=== PATIENT | male | born 1940 | race Caucasian/White ===

== ENCOUNTER 2019-09-01 12:51 | Emergency (ER) | payer OTHER ==
[~2019-09-01] VITALS: Ht 177.8 cm; Wt 112.5 kg
[~2019-09-01 12:51] MED LIST: ACET325 PO; AMIO200 PO; ARTIFICIAL TEARS; BENAZEPRIL PO; BISA10S PR; BUDE6HFA INH; CLON.3 PO; CLON.3TP TOP; CODEINE PO; DILT240ER PO; DILT60 PO; DOCU100 PO; FERR325 PO; FOLI1 PO; FURO40 PO; FURO80 PO; GEMF600 PO; GUAIFENESIN PO; Hair, Skin & N1 EACH PO; INS70/30I SC; INSUASPI; INSULANPEN INJ; LAVAP17G; LEVSOD125 PO; LISI20 PO; LORA10 PO; METF500 PO; METO100ER PO; METO25 PO; METO50 PO; MIRT15 PO; NITR.4TPA TOP; Norco 5-325 Ta1 EACH PO; Novolin R100 UNIT/M; OMEP20ER PO; POTA10T PO; POTCHL20ER PO; PROM25 PO; QUET25 PO; ROSU10TA PO; SERT25 PO; TAMS.4ER PO; TERA5 PO; Ventolin Soln3 ML; WARF5 PO
== END 2019-09-01 14:30 | disposition home or self-care (01) ==
LOC: ER 12:51
DX: R00.2 Palpitations (principal); I48.20 Chronic atrial fibrillation, unspecified; E11.9 Type 2 diabetes mellitus without complications; I11.0 Hypertensive heart disease with heart failure; I50.9 Heart failure, unspecified; Z88.8 Allergy status to other drugs, medicaments and biological substances; Z88.7 Allergy status to serum and vaccine; Z79.899 Other long term (current) drug therapy; Z79.01 Long term (current) use of anticoagulants; Z79.4 Long term (current) use of insulin
CPT/HCPCS: 36415; 82947; 93005; 93010; 99284-25

== ENCOUNTER 2022-04-29 12:40 | Emergency (ER) | payer OTHER ==
[~2022-04-29] VITALS: Ht 177.8 cm; Wt 117.0 kg
== END 2022-04-29 15:44 | disposition home or self-care (01) ==
LOC: ER 12:40
DX: S80.11XA Contusion of right lower leg, initial encounter (principal); E11.9 Type 2 diabetes mellitus without complications; I11.0 Hypertensive heart disease with heart failure; I50.9 Heart failure, unspecified; I48.91 Unspecified atrial fibrillation; V03.931A Pedestrian on standing electric scooter injured in collision with car, pick-up or van, unspecified whether traffic or nontraffic accident, initial encounter; Z88.7 Allergy status to serum and vaccine; Z88.8 Allergy status to other drugs, medicaments and biological substances; Z79.899 Other long term (current) drug therapy; Z79.01 Long term (current) use of anticoagulants; Z79.4 Long term (current) use of insulin
CPT/HCPCS: 73562-RT; 73590; 73600

== ENCOUNTER 2023-09-24 11:52 | Inpatient (IN) | payer OTHER ==
[~2023-09-24] VITALS: Ht 177.8 cm; Wt 106.0 kg
[~2023-09-24 11:52] MED LIST changes: +ATOR10 PO; +ELIQUIS5 M2 PO; +ERYT1OIN LEFTEYE; +Flonase 0.05% N16 GM; -INSUASPI; +NOVOLOG100 UNIT/3 SC; +SERT100 PO; +THERA-D2000 UNIT PO
[2023-09-24 12:36] LABS: BASOPHILS ABSOLUTE AUTO 0.05 K/mm3 (0.00-0.23); BASOPHILS PERCENT AUTO 1 % (0-2); EOSINOPHILS ABSOLUTE AUTO 0.16 K/mm3 (0.00-0.68); EOSINOPHILS PERCENT AUTO 2 % (0-6); Hematocrit 46.2 % (37.0-53.0); Hemoglobin 14.2 g/dL (13.5-17.5); IMMATURE GRAN ABSOLUTE AUTO 0.09 K/mm3 (0.00-0.10); IMMATURE GRAN PERCENT AUTO 1 % (0-1); LYMPHOCYTES ABSOLUTE AUTO 0.68 K/mm3 (0.84-5.20); LYMPHOCYTES PERCENT AUTO 7 % (21-46); MONOCYTES ABSOLUTE AUTO 0.97 K/mm3 (0.16-1.47); MONOCYTES PERCENT AUTO 9 % (4-13); Mean Corpuscular HGB 26.9 pg (26.0-34.0); Mean Corpuscular HGB Conc 30.7 g/dL (31.5-36.5); Mean Corpuscular Volume 88 fL (80-100); Mean Platelet Volume 10.4 fL (9.1-12.4); NEUTROPHILS ABSOLUTE AUTO 8.44 K/mm3 (1.96-9.15); NEUTROPHILS PERCENT AUTO 81 % (41-73); Platelet Count 186 K/mm3 (150-400); RDW Coefficient Variation 16.2 % (11.7-14.2); RDW Standard Deviation 51.7 fL (35.1-46.3); Red Blood Cell Count 5.28 M/mm3 (4.30-5.90); White Blood Cell Count 10.39 K/mm3 (4.00-11.30)
[2023-09-24 12:45] LABS: Source, Urine Clean Catch
[2023-09-24 12:54] LABS: Bilirubin, Urine Neg (Neg); Blood, Urine 3+ (Neg); Color, Urine Yellow (P-Yellow); Glucose Qualitative, Urine 4+ (Neg); Ketones, Urine Neg (Neg); Leukocyte Esterase, Urine 2+ (Neg); Nitrite, Urine Neg (Neg); Protein, Urine 2+ (Neg); Urobilinogen, Urine NORM (Normal)
[2023-09-24 13:01] LABS: Appearance, Urine Hazy (Clear)
[2023-09-24 13:02] LABS: Bacteria Few /hpf; Squamous Epithelial Cells Rare /hpf (Few)
[2023-09-24 13:03] LABS: Albumin, Blood 2.5 g/dL (3.4-5.0); Albumin/Globulin Ratio 0.7 (0.8-1.8); Bilirubin, Total 0.7 mg/dL (0.1-1.0); Bun/Creatinine Ratio 19.8 (12.0-20.0); Calcium, Blood 10.7 mg/dL (8.5-10.1); Creatinine, Blood 1.72 mg/dL (0.60-1.20); Globulin, Blood 3.6 g/dL (2.2-4.0); Magnesium, Blood 2.3 mg/dL (1.6-2.4); Potassium, Blood 3.3 mmol/L (3.5-5.5); Total Protein, Blood 6.1 g/dL (6.4-8.2)
[2023-09-24 13:03] LABS: Amorphous Light (0-Heavy)
[2023-09-24 13:34] LABS: Influenza A, PCR NEGATIVE (NEGATIVE); Influenza B, PCR NEGATIVE (NEGATIVE); Resp Syncytial Virus, PCR NEGATIVE (NEGATIVE); SARS-Cov-2 (COVID-19) PCR, MMC NEGATIVE (NEGATIVE)
[2023-09-24 17:36] VITALS: BP 140/83
--- NOTE | 2023-09-24 19:21 | NUR ---
PT ADMIT FROM ED. DR. ROMEO AT BEDSIDE FOR ASSESSMENT. PT IS A POOR HISTORIAN HE DOES NOT KNOW WHAT MEDICAITONS HE TAKES. REPORTS USING CPAP. UPDATED.
[2023-09-24 20:05] VITALS: BP 189/88
[2023-09-24 21:01] VITALS: BP 156/62
[2023-09-25] VITALS (7 sets, daily range): BP systolic 151–188; BP diastolic 68–106
[2023-09-25 04:57] LABS: BASOPHILS ABSOLUTE AUTO 0.04 K/mm3 (0.00-0.23); BASOPHILS PERCENT AUTO 1 % (0-2); EOSINOPHILS ABSOLUTE AUTO 0.22 K/mm3 (0.00-0.68); EOSINOPHILS PERCENT AUTO 3 % (0-6); Hematocrit 44.7 % (37.0-53.0); Hemoglobin 13.5 g/dL (13.5-17.5); IMMATURE GRAN ABSOLUTE AUTO 0.05 K/mm3 (0.00-0.10); IMMATURE GRAN PERCENT AUTO 1 % (0-1); LYMPHOCYTES ABSOLUTE AUTO 0.84 K/mm3 (0.84-5.20); LYMPHOCYTES PERCENT AUTO 10 % (21-46); MONOCYTES ABSOLUTE AUTO 0.96 K/mm3 (0.16-1.47); MONOCYTES PERCENT AUTO 11 % (4-13); Mean Corpuscular HGB 26.6 pg (26.0-34.0); Mean Corpuscular HGB Conc 30.2 g/dL (31.5-36.5); Mean Corpuscular Volume 88 fL (80-100); Mean Platelet Volume 9.9 fL (9.1-12.4); NEUTROPHILS ABSOLUTE AUTO 6.67 K/mm3 (1.96-9.15); NEUTROPHILS PERCENT AUTO 76 % (41-73); Platelet Count 153 K/mm3 (150-400); RDW Coefficient Variation 16.3 % (11.7-14.2); RDW Standard Deviation 52.1 fL (35.1-46.3); Red Blood Cell Count 5.08 M/mm3 (4.30-5.90); White Blood Cell Count 8.78 K/mm3 (4.00-11.30)
[2023-09-25 05:21] LABS: Albumin, Blood 2.4 g/dL (3.4-5.0); Albumin/Globulin Ratio 0.7 (0.8-1.8); Bilirubin, Total 0.5 mg/dL (0.1-1.0); Bun/Creatinine Ratio 18.9 (12.0-20.0); Calcium, Blood 10.8 mg/dL (8.5-10.1); Creatinine, Blood 1.8 mg/dL (0.60-1.20); Globulin, Blood 3.3 g/dL (2.2-4.0); Phosphorus, Blood 3.7 mg/dL (2.5-4.9); Potassium, Blood 3.9 mmol/L (3.5-5.5); Total Protein, Blood 5.7 g/dL (6.4-8.2)
--- NOTE | 2023-09-25 06:05 | NUR ---
SHIFT SUMMARY MR GONSALVES HAS SEVERE WEAKNESS. DIFFICULTY LIFTING A CUP TO HIS MOUTH. 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 ABLE TO ASSIST IN ROLLING IN BED A LITTLE. ORIENTATED TO NAME, PLACE, DATE, SITUATION, BUT FORGETFUL AND A POOR HISTORIAN. HE C/O PAIN GENERALISED, TO LEGS, BETWEEN HIS SHOULDER BLADES. HE SAID HE DOESN'T REMEMBER WHAT HE TAKES FOR PAIN AT HOME. UNABLE TO DO MED RECONCILIATION. HE SAID HE WILL ASK HIS FRIEND MAXINE TO BRING HIS MEDICATIONS IN TODAY. ON FURTHER QUESTIONING HE THINKS HE TAKES O.T.C. PAIN MEDS, PERHAPS TYLENOL. DR MCDONOUGH NOTIFIED OF PAIN AND TELEPHONE ORDER FOR FENTANYL 25-50MCG Q4HRS PRN READ BACK AND ENTERED INTO [place]. HEAT PAD APPLIED TO THE UPPER BACK FOR PAIN AND MR GONSALVES SAID HE WILL LET ME KNOW IF HE WANTS TO TAKE THE FENTANYL. BP ELEVATED, RECHECK BETTER. HE WORE CPAP WHEN SLEEPING. CONTINENT AND INCONTINENT OF URINE. RENAL US DONE AT BEDSIDE EARLIER THIS SHIFT. MR GONSALVES LIVES ALONE AND HAS BEEN HAVING DIFFICULTY CARING FOR HIMSELF RECENTLY. BED LOW, CALL LIGHT IN REACH AND BEING USED APPROPRIATELY.
[2023-09-25] MEDS ORDERED: ALLO100 PO (12:01)
--- NOTE | 2023-09-25 16:17 | NUR ---
SHIFT SUMMARY PT SLEEPING DURING SHIFT REPORT. DROWSY THIS AM. PT LATER WOKE UP DAY WENT ON. PT ABLE TO WORK WITH THERAPY AND GET OOB TO CHAIR. PT UP TO CHAIR FOR LUNCH AND A COUPLE OF HOURS AFTER. PT THEN REQUESTING TO GO BACK TO BED FOR A BIT. PT AWAKE AND USING PHONE, ABLE TO USE CALL LT APPROPRIATELY. PT C/O PAIN THIS AM. DR ARRIETA NOTIFIED. NEW ORDERS PLACED. PT REPORTING PAIN MEDICATION EFFECTIVE AND REPORTED FEELING MUCH BETTER. PT TAKES MEDS WHOLE IN GLEN PUDDING, REPORTING THEM MUCH EASIER TO TAKE THAT WAY. DR ARRIETA HOPING TO ARRANGE FOR BIOPSY ON NECK MASS ON WEDNESDAY IF POSSIBLE. VISITOR TO TODAY BRINGING IN HOME MEDICATIONS; VERIFIED AND UPDATED ON CHART. DENIES FURTHER NEEDS AT THIS TIME. CALL LT IN REACH.
--- NOTE | 2023-09-25 21:38 | NUR ---
HYPERTENSIVE PT HYPERTENSIVE WITH PM VITALS CHECK. JENN SIFUENTES NP CALLED AND NOTIFIED. RECEIVED ORDER FOR PRN HYDRALYZINE FOR SBP GREATER THAN 175.
[2023-09-26] VITALS (7 sets, daily range): BP systolic 146–187; BP diastolic 73–119
--- NOTE | 2023-09-26 04:06 | NUR ---
SHIFT SUMMARY PT HAS RESTED T/O THE NIGHT. PT REPORTS PAIN IN NECK AND SHOULDERS, MEDICATED PER EMAR WITH EFFECT. PT HAS BEEN HYPERTENSIVE, ASYMPTOMATIC. PROVIDER NOTIFIED AND HYDRALYZINE PRN FOR SBP GREATER THAN 175 ORDERED. SBP BELOW 175 WITH LAST CHECK. PT ABLE TO MAKE NEEDS KNOWN. BED IN LOWEST POSITION, CALL LIGHT WITHIN REACH.
[2023-09-26 05:51] LABS: BASOPHILS ABSOLUTE AUTO 0.04 K/mm3 (0.00-0.23); BASOPHILS PERCENT AUTO 0 % (0-2); EOSINOPHILS ABSOLUTE AUTO 0.26 K/mm3 (0.00-0.68); EOSINOPHILS PERCENT AUTO 3 % (0-6); Hematocrit 44.9 % (37.0-53.0); Hemoglobin 13.6 g/dL (13.5-17.5); IMMATURE GRAN PERCENT AUTO 1 % (0-1); LYMPHOCYTES ABSOLUTE AUTO 0.63 K/mm3 (0.84-5.20); LYMPHOCYTES PERCENT AUTO 7 % (21-46); MONOCYTES ABSOLUTE AUTO 0.84 K/mm3 (0.16-1.47); MONOCYTES PERCENT AUTO 9 % (4-13); Mean Corpuscular HGB 26.8 pg (26.0-34.0); Mean Corpuscular HGB Conc 30.3 g/dL (31.5-36.5); Mean Corpuscular Volume 88 fL (80-100); Mean Platelet Volume 11.4 fL (9.1-12.4); NEUTROPHILS ABSOLUTE AUTO 7.05 K/mm3 (1.96-9.15); NEUTROPHILS PERCENT AUTO 79 % (41-73); Platelet Count 164 K/mm3 (150-400); RDW Coefficient Variation 16.1 % (11.7-14.2); RDW Standard Deviation 52.2 fL (35.1-46.3); Red Blood Cell Count 5.08 M/mm3 (4.30-5.90); White Blood Cell Count 8.92 K/mm3 (4.00-11.30)
--- NOTE | 2023-09-26 06:04 | NUR ---
HYPERTENSION DR. MCDONOUGH NOTIFIED THAT PT CONTINUES TO BE HYPERTENSIVE SBP IN THE 170'S. NOTIFIED HIM THAT I SPOKE WITH JENN ROSS NP EARLIER IN SHIFT AND NOTIFIED HIM AND THAT HYDRALYZINE WAS ORDERED FOR SBP GREATER THAN 175. HOWEVER, BECAUSE SBP HAS SLIGHTLY BEEN UNDER PARAMETERS IN THE LOW 170'S I DID NOT GIVE. PARAMETERS CHANGED TO SBP GREATER THAN [address] LAWSON ORDERS.
[2023-09-26 06:53] LABS: Bun/Creatinine Ratio 19.3 (12.0-20.0); Calcium, Blood 11.2 mg/dL (8.5-10.1); Creatinine, Blood 1.76 mg/dL (0.60-1.20); Potassium, Blood 3.8 mmol/L (3.5-5.5)
--- NOTE | 2023-09-26 15:31 | NUR ---
SHIFT SUMMARY PT AWAKE THIS AM, BUT LETHARGIC AND WHINY; UNWILLING TO ANSWER QUESTIONS ACCURATELY OR PARTICIPATE IN CARE. PT UNWILLING TO FEED HIMSELF TODAY, WANTING STAFF TO DO IT. MEAL TRAYS SET UP AND PT ENCOURAGED TO FEED HIMSELF. PT DID THE SAME THING YESTERDAY AM, WANTING STAFF TO FEED HIM, THEN YVAN FROM THERAPY IN TO SEE PT AND GOT HIM OOB TO CHAIR MOTIVATING PT TO HELP HIMSELF ON WEDNESDAY. PT HAS BEEN LETHARGIC AND C/O PAIN OFF AND ON; PT MEDICATED MORE TODAY, BUT DID NOT SEEM TO BE EFFECTIVE FOR SOME REASON; PT MORE RESTLESS AND WHINY. DR ARRIETA IN TO SEE PT THIS MORNING. BP MEDICATIONS ADJUSTED AND GIVEN. PT INCONTINENT OF URINE; PT CLEANED AND LINEN CHANGED. BED BATH GIVEN AGAIN TODAY. PT QUIET FOR A FEW MINUTES AND THEN BECOMING RESTLESS, TRYING TO USE HIS PHONE. PT ROLLING HIMSELF OUT OF BED WHILE TRYING TO USE HIS PHONE, NOT PAYING ATTENTION. PT ASSISTED BACK INTO BED, VS TAKEN; SEE CHART. PT HAS CONTINUED TO USE AND LOOK ON HIS PHONE TO PRESENT. DR ARRIETA TO CONTACT IR FOR POSSIBLE BIOPSY OF NECK MASS TOMORROW. CALL LT IN REACH. BED ALARM ON FOR SAFETY.
[2023-09-27] VITALS (7 sets, daily range): BP systolic 137–188; BP diastolic 73–117
--- NOTE | 2023-09-27 03:56 | NUR ---
1900: ASSUMED CARE OF PT, REPORT RECEIVED FROM DAY SHIFT RN. PT IS LAYING IN BED WITH HOB ELEVATED. A/O X2-3 DURING THE NIGHT. PAINFUL WITH MOVEMENT, REPORTS PAIN "MY WHOLE BODY". ASSISTED IN BED FOR ELIMINATION AND TURNING THROUGHOUT THE NIGHT. MAINTAINED OXYGEN SATURATION ON ROOM AIR >90%. NEW PIV PLACED BY SECOND RN TO RIGHT FOREARM. NEEDS ADDRESSED AND SAFETY MEASURES TAKEN THROUGH THE NIGHT. CALL LIGHT WITHIN REACH, BED IN THE LOWEST POSITION, BED ALARM ON. NEEDS ADDRESSED.
[2023-09-27 06:01] LABS: Albumin, Blood 2.4 g/dL (3.4-5.0); Albumin/Globulin Ratio 0.6 (0.8-1.8); Bilirubin, Total 0.3 mg/dL (0.1-1.0); Calcium, Blood 10.6 mg/dL (8.5-10.1); Creatinine, Blood 1.5 mg/dL (0.60-1.20); Globulin, Blood 3.7 g/dL (2.2-4.0); Potassium, Blood 3.8 mmol/L (3.5-5.5); Total Protein, Blood 6.1 g/dL (6.4-8.2)
[2023-09-27 06:03] LABS: BASOPHILS ABSOLUTE AUTO 0.05 K/mm3 (0.00-0.23); BASOPHILS PERCENT AUTO 1 % (0-2); EOSINOPHILS ABSOLUTE AUTO 0.21 K/mm3 (0.00-0.68); EOSINOPHILS PERCENT AUTO 2 % (0-6); Hematocrit 48.2 % (37.0-53.0); Hemoglobin 14.6 g/dL (13.5-17.5); IMMATURE GRAN ABSOLUTE AUTO 0.13 K/mm3 (0.00-0.10); IMMATURE GRAN PERCENT AUTO 1 % (0-1); LYMPHOCYTES ABSOLUTE AUTO 0.74 K/mm3 (0.84-5.20); LYMPHOCYTES PERCENT AUTO 7 % (21-46); MONOCYTES ABSOLUTE AUTO 1.05 K/mm3 (0.16-1.47); MONOCYTES PERCENT AUTO 10 % (4-13); Mean Corpuscular HGB 26.6 pg (26.0-34.0); Mean Corpuscular HGB Conc 30.3 g/dL (31.5-36.5); Mean Corpuscular Volume 88 fL (80-100); Mean Platelet Volume 11.3 fL (9.1-12.4); NEUTROPHILS ABSOLUTE AUTO 8.07 K/mm3 (1.96-9.15); NEUTROPHILS PERCENT AUTO 79 % (41-73); Platelet Count 191 K/mm3 (150-400); RDW Coefficient Variation 16.2 % (11.7-14.2); Red Blood Cell Count 5.49 M/mm3 (4.30-5.90); White Blood Cell Count 10.25 K/mm3 (4.00-11.30)
--- NOTE | 2023-09-27 10:00 | NUR ---
KIERAN LEIJA VERBALIZED CONCERN ABOUT PATIENT AND HIS LOC. VITALS NOTED TO BE STABLE. O2 DECREASES TO LOW 80'S WHEN LAYING FLAT. 4+ PITTING EDEMA TO LEFT HAND IS WARM. PATIENT CRIES OUT IN PAIN AND REPORTS THE LEFT SIDE OF HIS NECK HURTS. HE ALSO APPEARS RESTLESS AND UNCOMFORTABLE. NOTIFIED AND VERBALLY ORDERED HEAD CT, US OF LEFT EXTREMITIY AND 0.5MG OF IV ATIVAN ONE TIME NOW.
--- NOTE | 2023-09-27 12:51 | NUR ---
[facility]ocker REPORTED TO THIS NURSE THAT PT IS POSITIVE FOR A THROMBUS. NOTIFIED PROVIDED WHO CONFIRMED PATIENT IS RECEIVING ELIQUIS. PLAN TO MONITOR AT THIS POINT.
--- NOTE | 2023-09-27 15:53 | NUR ---
PATIENT NOTED TO BE HALF WAY OUT OF RECLINER, CRYING OUT. 3 PHYSICAL THERAPISTS AND 2 NURSING STAFF TRANSFERRED PATIENT BACK TO BED USING A SLING LIFT SHEET. PATIENT IS TEARFUL DUE TO PAIN TO LUE. VERBAL ORDER RECEIVED TO PUT A WEIGHT RESTRICTION ON PT'S LEFT ARM. NOTIFIED THERAPIES.
--- NOTE | 2023-09-27 16:13 | NUR ---
RECEIVED A CALL FROM OUTPATIENT IMAGING AND WAS NOTIFIED THAT THE HOSPITAL MRI MACHINE IS DOWN AND PATIENT WOULD HAVE TO BE TRANSPORTED TO OUTPATIENT FACILITY TO BE SCANNED. THE EARLIEST TIME WOULD BE ON 09/28/[address] ARRIETA.
--- NOTE | 2023-09-27 17:04 | NUR ---
REPORT GIVEN TO TABITHA LAM IN PCU. TRANSFERRED PATIENT AT 1650.
[2023-09-27 17:06] LABS: Lactate Dehydrogenase (Ld),Bld 495 U/L (100-240); Prostate Specific Antigen 0.447 ng/mL (0.000-4.000); Uric Acid, Blood 6.7 mg/dL (3.5-7.2)
--- NOTE | 2023-09-27 23:29 | NUR ---
ASSUMED CARE OF PT AT 1900. PT AOX~2 ALTHOUGH MENTATION APPEARS TO FLUCTUATE SOMEWHAT. NOT ENTIRELY COOPERATIVE WITH CARE BUT IS MOSTLY REDIRECTABLE. HEAVY 2 PERSON TRANSFER FROM CHAIR TO BED. CONTINENT THUS FAR. BED ALARM REMAINS ACTIVE FOR SAFETY. HAS BEEN MAINTAINING SATURATIONS >92% ON ROOM AIR WITH OCCASIONAL DIPS INTO HIGH 80s WHILE SLEEPING. ADMINISTERED PRN NORCO FOR PAIN MANAGEMENT WITH 2100 MEDICATIONS AND PT HAS MOSTLY BEEN ABLE TO SLEEP COMFORTABLY SINCE. TELE ON, RUNNING AFIB W/ BBB NO EVENTS THUS FAR. BP HAS BEEN ELEVATED THROUGHOUT SHIFT BUT HAS MAINTAINED <190 SBP. PER SHIFT REPORT, PHYSICIAN AWARE AND ALLOWING PERMISSIVE HTN WITH PRN IV HYDRALAZINE TO BE ADMINISTERED IF SBP >=200. BED LOCKED IN LOWEST POSITION. CALL LIGHT LEFT WITHIN REACH. BED ALARM REMAINS ACTIVE. CONTINUING TO MONITOR. WILL HAND OFF TO IRA LU @ 0100.
[2023-09-28 02:57] VITALS: BP 162/87
[2023-09-28 05:33] LABS: BASOPHILS ABSOLUTE AUTO 0.05 K/mm3 (0.00-0.23); BASOPHILS PERCENT AUTO 1 % (0-2); EOSINOPHILS ABSOLUTE AUTO 0.24 K/mm3 (0.00-0.68); EOSINOPHILS PERCENT AUTO 2 % (0-6); Hematocrit 46.1 % (37.0-53.0); Hemoglobin 14.2 g/dL (13.5-17.5); IMMATURE GRAN ABSOLUTE AUTO 0.13 K/mm3 (0.00-0.10); IMMATURE GRAN PERCENT AUTO 1 % (0-1); LYMPHOCYTES ABSOLUTE AUTO 0.62 K/mm3 (0.84-5.20); LYMPHOCYTES PERCENT AUTO 6 % (21-46); MONOCYTES ABSOLUTE AUTO 0.96 K/mm3 (0.16-1.47); MONOCYTES PERCENT AUTO 9 % (4-13); Mean Corpuscular HGB 26.9 pg (26.0-34.0); Mean Corpuscular HGB Conc 30.8 g/dL (31.5-36.5); Mean Corpuscular Volume 88 fL (80-100); Mean Platelet Volume 11.3 fL (9.1-12.4); NEUTROPHILS ABSOLUTE AUTO 8.53 K/mm3 (1.96-9.15); NEUTROPHILS PERCENT AUTO 81 % (41-73); Platelet Count 207 K/mm3 (150-400); RDW Coefficient Variation 16.2 % (11.7-14.2); RDW Standard Deviation 51.9 fL (35.1-46.3); Red Blood Cell Count 5.27 M/mm3 (4.30-5.90); White Blood Cell Count 10.53 K/mm3 (4.00-11.30)
[2023-09-28 05:55] LABS: Albumin, Blood 2.4 g/dL (3.4-5.0); Albumin/Globulin Ratio 0.7 (0.8-1.8); Bilirubin, Total 0.4 mg/dL (0.1-1.0); Bun/Creatinine Ratio 18.5 (12.0-20.0); Calcium, Blood 10.4 mg/dL (8.5-10.1); Creatinine, Blood 1.62 mg/dL (0.60-1.20); Globulin, Blood 3.6 g/dL (2.2-4.0); Potassium, Blood 3.5 mmol/L (3.5-5.5)
--- NOTE | 2023-09-28 06:16 | NUR ---
NOC SHIFT SUMMARY ASSUMED CARE OF PT FROM ENIO RAO RN @ 0100 PT ORIENTED X2-3, CONFUSION NOTED. AFIB ON TELEMETRY, RATE CONTROLLED. PAIN CONTROLLED BY AVAILABLE PRNS. VSS PER PT TREND. NPO SINCE 0000 FOR NECK BIOPSY WITH IR TODAY. WILL PASS ON TO DAY RN
--- NOTE | 2023-09-28 06:52 | NUR ---
PT HAD A 15 BEAT RUN OF VTACH THIS AM. ASYMPTOMATIC, VSS. NOTIFIED DR. BAEZ AND ORDER FOR MAG TO BE CHECKED AND 40 MEQ POTASSIUM
[2023-09-28 07:34] VITALS: BP 186/104
[2023-09-28 11:02] VITALS: BP 154/105
[2023-09-28 14:28] VITALS: BP 156/106
[2023-09-28 15:27] VITALS: BP 168/92
--- NOTE | 2023-09-28 17:26 | NUR ---
Shift Summary Pt alert, oriented x2, neuro continues to be labile and at times patient declineing assessments intermittently. Pt up with 1 person assist this am, attempted to educated pt on limited activity due to blood clot. Attempted to give patient medication this am with water and pt states it got stuck in his throat, then attempted to give liquid potassium and pt coughed and appeared to aspirated, pt placed on 2l o2 via nc this am for short while. Notified MD, new orders for ST evaluation, Renee at bedside this afternoon. Pt denies pain, chest pain/pressure, nausea, dizziness and numb/tingling. Tele afib with bbb, 90-110's occasionally 120-150's at times. Bp elevated. Other vss. No other acute changes noted. Unable to compelted MRI due to patient pacemaker. Plans for NPO at midnight for biopsy in am. Pt denies pain, chest pain/pressure
[2023-09-28 20:02] VITALS: BP 154/104
--- NOTE | 2023-09-28 22:54 | NUR ---
ASSUMPTION OF CARE: THIS RN ASSUMED CARE OF PT AT APPROX 1915. PT IS ALERT, ORIENTED X3 AT START OF SHIFT. PLEASANT, CONVERSANT W/ STAFF. VSS W/ BP ELEVATED; PERMISSIVE HTN AT THIS TIME. PILLS W/ PUDDING, TOLERATED WELL W/O ANY VISIBLE SIGNS OF ASPIRATION. PT CONTINUES TO BE FORGETFUL, PROFOUNDLY WEAK. COOPERATIVE W/ ASSESSMENTS AT THIS TIME. PLANS FOR NPO AT 0000 FOR BIOPSY IN AM. CALL LIGHT WITHIN REACH, BED IN LOWEST POSITION.
[2023-09-29] VITALS (15 sets, daily range): BP systolic 147–180; BP diastolic 80–115
--- NOTE | 2023-09-29 03:43 | NUR ---
LATE ENTRY DATE INPUT ERROR WHEN CHARTING SHIFT ASSESSMENT. SHIFT ASSESSMENT WAS PERFORMED BY THIS RN ON 09/25/22 AT 1952 NOT 09/24/22 AT 1952.
[2023-09-29 04:25] LABS: BETA-2-MICROGLOBULIN,SER/PLAS 6.3 mg/L (<=3.0)
--- NOTE | 2023-09-29 04:44 | NUR ---
END OF SHIFT NOTE: PT REMAINS ALERT, ORIENTED X2-3. NEURO HAS REMAINED CONSISTENT OVERNIGHT, Q2HR NEURO CHECKS UNCHANGED. NO UNILATERAL DEFICITS OBSERVED. PERRLA. 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 RADIAL & PEDAL PULSES PALPABLE. PT ABLE TO COMMUNICATE NEEDS W/ STAFF. HR 90'S, AFIB ON TELE; 5 BEAT RUN OF VTACH WHILE SLEEPING AT APPROX 0355. SBP 150-160'S. DENIES CHEST PAIN/PRESSURE. SPO2 >93% ON RA-2L VIA NC. AFEBRILE. NO C/O PAIN, ABLE TO SLEEP FOR MAJORITY OF NOC. PT ABLE TO SIT UP & REPOSITION SELF W/ MINIMAL ASSISTANCE. NPO SINCE 0000 FOR ANTICIPATED BIOPSY THIS MORNING. INCONTINENT VOIDS W/ SOME USE OF URINAL, STAFF ASSISTANCE REQUIRED DUE TO PT'S GENERALIZED WEAKNESS. NO OTHER NEEDS AT THIS TIME. PT IS RESTING IN BED W/ CALL LIGHT IN REACH. BED ALARM ON FOR PT SAFETY. WILL REPORT TO ONCOMING RN.
--- NOTE | 2023-09-29 05:16 | NUR ---
LATE ENTRY DATE INPUT ERROR WHEN CHARTING SHIFT ASSESSMENT. SHIFT ASSESSMENT WAS PERFORMED BY THIS RN ON 09/25/23 AT 1952 NOT 09/24/23 AT 1952.
--- NOTE | 2023-09-29 07:40 | NUR ---
care assumption pt lethargic upon care assumption. able to answer some questions. moans and asks for water. pt educated on why he is npo for possible biopsy this am. sp02>90% on 2l nc. telemetry shows afib, hr 90;s, htn noted see vitals. after assessment, telemetry notified pt's desatting. Charge in room as well as RT, pt sats in 60's. elevated hob, woke pt up. Pt sat eddie to 90's once again. RT to get cpap for when pt sleepnig.
[2023-09-29 08:29] LABS: Base Excess Venous 3.6 mmol/L; Bicarbonate Venous 25.5 mmol/L (24.0-30.0); PCO2 Venous 56.7 mmHg (38-42); pH Blood Venous 7.33 (7.34-7.37)
[2023-09-29 08:42] LABS: BASOPHILS ABSOLUTE AUTO 0.05 K/mm3 (0.00-0.23); BASOPHILS PERCENT AUTO 1 % (0-2); EOSINOPHILS ABSOLUTE AUTO 0.25 K/mm3 (0.00-0.68); EOSINOPHILS PERCENT AUTO 3 % (0-6); Hematocrit 48.3 % (37.0-53.0); Hemoglobin 14.2 g/dL (13.5-17.5); IMMATURE GRAN ABSOLUTE AUTO 0.13 K/mm3 (0.00-0.10); IMMATURE GRAN PERCENT AUTO 1 % (0-1); LYMPHOCYTES ABSOLUTE AUTO 0.47 K/mm3 (0.84-5.20); LYMPHOCYTES PERCENT AUTO 5 % (21-46); MONOCYTES ABSOLUTE AUTO 0.88 K/mm3 (0.16-1.47); MONOCYTES PERCENT AUTO 9 % (4-13); Mean Corpuscular HGB 26.5 pg (26.0-34.0); Mean Corpuscular HGB Conc 29.4 g/dL (31.5-36.5); Mean Corpuscular Volume 90 fL (80-100); Mean Platelet Volume 10.5 fL (9.1-12.4); NEUTROPHILS ABSOLUTE AUTO 7.57 K/mm3 (1.96-9.15); NEUTROPHILS PERCENT AUTO 81 % (41-73); Platelet Count 199 K/mm3 (150-400); RDW Coefficient Variation 16.6 % (11.7-14.2); RDW Standard Deviation 54.5 fL (35.1-46.3); Red Blood Cell Count 5.36 M/mm3 (4.30-5.90); White Blood Cell Count 9.35 K/mm3 (4.00-11.30)
[2023-09-29 09:00] LABS: Albumin, Blood 2.5 g/dL (3.4-5.0); Albumin/Globulin Ratio 0.7 (0.8-1.8); Bilirubin, Total 0.4 mg/dL (0.1-1.0); Bun/Creatinine Ratio 19.6 (12.0-20.0); Calcium, Blood 10.5 mg/dL (8.5-10.1); Creatinine, Blood 1.79 mg/dL (0.60-1.20); Globulin, Blood 3.7 g/dL (2.2-4.0); Total Protein, Blood 6.2 g/dL (6.4-8.2)
--- NOTE | 2023-09-29 12:46 | NUR ---
UPDATE PT BEGAN WAKING UP MORE DURING LUNCH TIME. PT ABLE TO MAKE NEEDS KNOWN, "I HURT ALL OVER" "I WANT WATER". PT ABLE TO TOLERATE SMALL SIPS OF WATER. PT GIVEN TYLENOL W/ PUDDING PER SPEECH RECOMMENDATIONS WITH NO APPARENT ISSUE. BIPAP REMOVED AND PT PLACED ON 3L NC W/ SATS >90%. PT ABLE TO CALL AND TALK TO FRIEND, MAXINE, ON SPEAKER PHONE. PT RESTING IN ROOM, CALL LIGHT IN R HAND.
--- NOTE | 2023-09-29 18:26 | NUR ---
shift summary Pt became more alert around noon. Able to make needs known. used call light appropriately. Sp02>90% able to titrate to ra. telemetry shows afib, hr 90's, HTN noted. permissive per emar. Used urinal to void as well as some incontinent voids. full linen change. bed bath given. C/o of l arm pain, medicated w/ tylenol per emar. no bm this shift. MD Mcrae in room for neck biopsy this am, dressing c/d/i. Chest xray in room this evening, see results. medication given w/ pudding per speech therapy with no apparent issues. Pt talked on phone to friend, elaine, with assistance. Pt talked on phone this afternoon with [facility]. Pt laying in bed watching tv. call light in reach.
--- NOTE | 2023-09-29 20:07 | NUR ---
ASSUMPTION OF CARE: THIS RN ASSUMED CARE OF PT AT APPROX 1915. PT ALERT, SITTING UP IN BED. ABLE TO TALK TO FRIEND ON PHONE AT START OF SHIFT. ORIENTED TO SELF AND DATE, UNSURE ABOUT PLACE OR DETAILS OF CURRENT SITUATION. ON RA-1L NC AT THIS TIME, DENIES SOB. BP ELEVATED, PERMISSIVE PER ORDERS. ON BEDPAN AT THIS TIME TO ATTEMPT BM, ATTENDS C/D/I AT THIS TIME. CALL LIGHT IN REACH, BED IN LOWEST POSITION.
[2023-09-30 03:00] VITALS: BP 165/100
[2023-09-30 03:58] LABS: BASOPHILS ABSOLUTE AUTO 0.04 K/mm3 (0.00-0.23); BASOPHILS PERCENT AUTO 0 % (0-2); EOSINOPHILS ABSOLUTE AUTO 0.31 K/mm3 (0.00-0.68); EOSINOPHILS PERCENT AUTO 3 % (0-6); Hematocrit 44.2 % (37.0-53.0); Hemoglobin 13.6 g/dL (13.5-17.5); IMMATURE GRAN ABSOLUTE AUTO 0.08 K/mm3 (0.00-0.10); IMMATURE GRAN PERCENT AUTO 1 % (0-1); LYMPHOCYTES ABSOLUTE AUTO 0.66 K/mm3 (0.84-5.20); LYMPHOCYTES PERCENT AUTO 7 % (21-46); MONOCYTES ABSOLUTE AUTO 0.81 K/mm3 (0.16-1.47); MONOCYTES PERCENT AUTO 9 % (4-13); Mean Corpuscular HGB 26.9 pg (26.0-34.0); Mean Corpuscular HGB Conc 30.8 g/dL (31.5-36.5); Mean Corpuscular Volume 88 fL (80-100); NEUTROPHILS ABSOLUTE AUTO 7.29 K/mm3 (1.96-9.15); NEUTROPHILS PERCENT AUTO 79 % (41-73); Platelet Count 198 K/mm3 (150-400); RDW Coefficient Variation 16.1 % (11.7-14.2); RDW Standard Deviation 51.5 fL (35.1-46.3); Red Blood Cell Count 5.05 M/mm3 (4.30-5.90); White Blood Cell Count 9.19 K/mm3 (4.00-11.30)
[2023-09-30 04:30] LABS: Albumin, Blood 2.2 g/dL (3.4-5.0); Albumin/Globulin Ratio 0.6 (0.8-1.8); Bilirubin, Total 0.3 mg/dL (0.1-1.0); Bun/Creatinine Ratio 22.2 (12.0-20.0); Calcium, Blood 9.9 mg/dL (8.5-10.1); Creatinine, Blood 1.62 mg/dL (0.60-1.20); Globulin, Blood 3.5 g/dL (2.2-4.0); Potassium, Blood 3.6 mmol/L (3.5-5.5); Total Protein, Blood 5.7 g/dL (6.4-8.2)
--- NOTE | 2023-09-30 05:18 | NUR ---
END OF SHIFT NOTE: PT REMAINS ALERT, ORIENTED X2-3. NEURO HAS REMAINED CONSISTENT OVERNIGHT, Q2HR NEURO CHECKS UNCHANGED. NO UNILATERAL DEFICITS OBSERVED. PERRLA. 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 RADIAL & PEDAL PULSES PALPABLE. PT ABLE TO COMMUNICATE NEEDS W/ STAFF, USES CALL LIGHT APPROPRIATELY. HR 80-90'S. SBP 140-170'S, DENIES CHEST PAIN/PRESSURE. SPO2 >90% ON 2L VIA NC, BIPAP WHILE SLEEPING 12/7, 25% FIO2. AFEBRILE. C/O PAIN CAIT, MEDICATED W/ TYLENOL PER EMAR. PT ABLE TO SIT UP & REPOSITION SELF W/ ASSISTANCE. LEFT NECK BIOPSY SITE REMAINS INTACT, DRESSING IN PLACE; NO BLEEDING OR HEMATOMA FORMATION OBSERVED. INCONTINENT VOIDS W/ SOME USE OF URINAL, ATTENDS CHANGED TO KEEP C/D/I. NO OTHER NEEDS AT THIS TIME. PT IS RESTING IN BED W/ CALL LIGHT IN REACH. BED ALARM ON FOR PT SAFETY. WILL REPORT TO ONCOMING RN.
[2023-09-30 07:46] VITALS: BP 185/100
[2023-09-30 11:31] VITALS: BP 152/85
[2023-09-30 16:56] VITALS: BP 149/84
--- NOTE | 2023-09-30 18:20 | NUR ---
SHIFT SUMMARY PT A&OX4, SP02>90% ON RA-1L NC. SOME COUGHING, PRODUCTIVE CLEAR SPUTUM. TELEMETRY SHOWS AFIB, HR MOSTLY 90'S. VSS. PT C/O OF L SIDE PAIN, MEDICATED W/ TYLENOL PER EMAR. USED URINAL TO VOID. UP TO BATHROOM TO HAVE BM. C/O FEELING CONSTIPATED. CALL PLACED TO MD ARRIETA. MD ARRIETA W/ ORDERS FOR SENNA BID. PT ABLE TO WORK WITH PT, AMBULATED. PT SITTING ON SIDE OF BED OR RECLINER FOR MEALS. MEDS W/ PUDDING. PT CURRENTLY RESTING IN BED. CALL LIGHT IN REACH.
[2023-09-30 19:39] VITALS: BP 167/96
--- NOTE | 2023-09-30 20:00 | NUR ---
ASSUMPTION OF CARE: THIS RN ASSUMED CARE OF PT AT APPROX 1915. PT LYING IN BED AWAKE. ALERT, ABLE TO STATE NAME, , PLACE, YEAR, AND SITUATION. VSS. PERRLA. DIRECTOR LOAN STRENGTH EQUAL BILATERALLY. NO UNILATERAL DEFICITS OBSERVED. ABLE TO COMMUNICATE NEEDS W/ STAFF & CALL APPROPRIATELY. C/O PAIN IN LUE, MEDICATED PER EMAR. ATTENDS CHANGED, REPOSITIONED IN BED. NO OTHER NEEDS AT THIS TIME. CALL LIGHT WITHIN REACH, BED ALARM ON FOR PT SAFETY.
[2023-09-30 23:16] VITALS: BP 168/101
[2023-10-01 03:15] VITALS: BP 153/106
[2023-10-01 04:42] LABS: BASOPHILS ABSOLUTE AUTO 0.01 K/mm3 (0.00-0.23); BASOPHILS PERCENT AUTO 0 % (0-2); EOSINOPHILS PERCENT AUTO 0 % (0-6); Hemoglobin 12.8 g/dL (13.5-17.5); IMMATURE GRAN ABSOLUTE AUTO 0.09 K/mm3 (0.00-0.10); IMMATURE GRAN PERCENT AUTO 1 % (0-1); LYMPHOCYTES ABSOLUTE AUTO 0.45 K/mm3 (0.84-5.20); LYMPHOCYTES PERCENT AUTO 6 % (21-46); MONOCYTES ABSOLUTE AUTO 0.27 K/mm3 (0.16-1.47); MONOCYTES PERCENT AUTO 4 % (4-13); Mean Corpuscular HGB 26.3 pg (26.0-34.0); Mean Corpuscular HGB Conc 29.8 g/dL (31.5-36.5); Mean Corpuscular Volume 88 fL (80-100); Mean Platelet Volume 10.9 fL (9.1-12.4); NEUTROPHILS ABSOLUTE AUTO 6.56 K/mm3 (1.96-9.15); NEUTROPHILS PERCENT AUTO 89 % (41-73); Platelet Count 230 K/mm3 (150-400); RDW Coefficient Variation 15.7 % (11.7-14.2); RDW Standard Deviation 51.4 fL (35.1-46.3); Red Blood Cell Count 4.87 M/mm3 (4.30-5.90); White Blood Cell Count 7.38 K/mm3 (4.00-11.30)
--- NOTE | 2023-10-01 04:56 | NUR ---
END OF SHIFT NOTE: PT REMAINS ALERT, ORIENTED X3-4. NEURO HAS REMAINED CONSISTENT OVERNIGHT, Q4HR NEURO CHECKS COMPLETED, UNCHANGED. NO UNILATERAL DEFICITS OBSERVED. PERRLA. CARGO TRIMMER STRENGTH WEAK BILATERALLY BUT HAS IMPROVED. RADIAL & PEDAL PULSES PALPABLE. PT ABLE TO COMMUNICATE NEEDS W/ STAFF, USES CALL LIGHT APPROPRIATELY. HR 70-80'S, AFIB ON TELE. SBP 150-160'S, DENIES CHEST PAIN/PRESSURE. SPO2 >93% ON RA-2L VIA NC WHILE AWAKE, BIPAP WHILE SLEEPING. AFEBRILE. C/O PAIN TO L ARM, MEDICATED W/ TYLENOL PER EMAR & RESTED EXTREMITY ON PILLOW; PT REPORTS SIGNIFICANT RELIEF THIS AM. ABLE TO SIT UP & REPOSITION SELF W/ MINIMAL ASSISTANCE FROM STAFF. MIX OF INCONTINENT & CONTINENT VOIDS W/ URINAL, NO BM OVERNIGHT. ATTENDS IN PLACE, CHANGED TO KEEP C/D/I. NO OTHER NEEDS AT THIS TIME. PT IS RESTING IN BED W/ CALL LIGHT IN REACH. BED ALARM ON FOR PT SAFETY. WILL REPORT TO ONCOMING RN.
[2023-10-01 05:03] LABS: Bun/Creatinine Ratio 22.9 (12.0-20.0); Calcium, Blood 9.8 mg/dL (8.5-10.1); Creatinine, Blood 1.57 mg/dL (0.60-1.20)
[2023-10-01 08:44] VITALS: BP 171/91
[2023-10-01 10:31] VITALS: BP 157/81
[2023-10-01] MEDS ORDERED: Norco 5-325 Ta1 EACH PO (11:21)
[2023-10-01] MEDS ORDERED: METO25 PO (11:25)
[2023-10-01] MEDS ORDERED: PRED20 PO (11:25)
[2023-10-01] MEDS ORDERED: SENN187 PO (11:25)
[2023-10-01] MEDS ORDERED: VISBIOME 112.51 EACH PO (11:26)
[2023-10-01] MEDS ORDERED: LEVO750 PO (11:26)
[2023-10-01 11:47] LABS: SARS-Cov-2 (COVID-19) PCR, MMC NEGATIVE (NEGATIVE)
[2023-10-01 13:12] VITALS: BP 160/86
--- NOTE | 2023-10-01 14:29 | NUR ---
REPORT [facility]IV[facility] XAVIER [facility] [place] PRECISION ASSEMBLER TIME SET UP FOR 1530.
--- NOTE | 2023-10-01 16:12 | NUR ---
SHIFT SUMMARY/DC SUMMARY PT HAS BEEN A&OX4, CALLS APPROPRIATELY, AND CAN MAKE HIS NEEDS KNOWN. HE HAS BEEN ON RA MAJORITY OF THE DAY. HE WANTED TO GO ON 1L NC WHEN HE WAS RESTING AROUND 1500. HE WAS RESTING WHILE WAITING FOR TRANSPORT TO RBING HIM TO [facility]. HE DOES HAVE A HX OF HTN AND RECIEVES MEDICATIONS PER EMAR. THE PT HAS HAD MEDICATIONS FOR LEFT ARM PAIN PER REQUEST. ON TELE HE HAS BEEN AFIB 70'S-80'S W/O AND ANGINA OR CHEST PRESSURE. THE PT WAS PICKED UP AT 1600 AND WAS SENT WITH ALL OF HIS BELONGINGS. HE DID NOT HAVE ANY CLOTHES SO HE WAS SENT IN A HOSPITAL GOWN. HE PUT ON ALL OF THE JEWLERY THAT HE WAS WEARING WHEN HE CAME IN AND HAS HIS PHONE AND PHONE CHARGE. MEDICATIONS WERE SENT WITH THE PT. DISCHARGE PACKET AND WERE SENT WITH THE TRANSPORT.
== END 2023-10-01 16:43 | DRG 682 ==
LOC: ER 11:52 → MEDS 11:53 → PCU 09-25 16:33 → MEDS 09-25 16:33 → PCU 09-27 16:50
PROVIDERS: Emergency Medicine; Hospitalist; Internal Medicine Hematology & Oncology; ADMIT Internal Medicine
PROC: 5A09357 Assistance with Respiratory Ventilation, Less than 24 Consecutive Hours, Continuous Positive Airway Pressure (ICD-10-PCS; principal; 2023-09-25)
PROC: 0WB63ZX Excision of Neck, Percutaneous Approach, Diagnostic (ICD-10-PCS; 2023-09-29)
PROC: 0HB5XZX Excision of Chest Skin, External Approach, Diagnostic (ICD-10-PCS; 2023-09-29)
DX: N17.9 Acute kidney failure, unspecified (principal); J18.9 Pneumonia, unspecified organism; J96.01 Acute respiratory failure with hypoxia; I82.B12 Acute embolism and thrombosis of left subclavian vein; N39.0 Urinary tract infection, site not specified; I50.42 Chronic combined systolic (congestive) and diastolic (congestive) heart failure; I13.0 Hypertensive heart and chronic kidney disease with heart failure and stage 1 through stage 4 chronic kidney disease, or unspecified chronic kidney disease; E87.20 Acidosis, unspecified; I48.20 Chronic atrial fibrillation, unspecified; Z66 Do not resuscitate; R22.1 Localized swelling, mass and lump, neck; N18.30 Chronic kidney disease, stage 3 unspecified; E11.22 Type 2 diabetes mellitus with diabetic chronic kidney disease; E86.0 Dehydration; E83.52 Hypercalcemia; E87.6 Hypokalemia; B95.2 Enterococcus as the cause of diseases classified elsewhere; F32.A Depression, unspecified; E78.5 Hyperlipidemia, unspecified; K21.9 Gastro-esophageal reflux disease without esophagitis; M10.9 Gout, unspecified; D50.9 Iron deficiency anemia, unspecified; N40.0 Benign prostatic hyperplasia without lower urinary tract symptoms; E03.9 Hypothyroidism, unspecified; Z87.891 Personal history of nicotine dependence; Z88.8 Allergy status to other drugs, medicaments and biological substances; Z88.7 Allergy status to serum and vaccine; Z85.46 Personal history of malignant neoplasm of prostate; Z98.890 Other specified postprocedural states; Z11.52 Encounter for screening for COVID-19; Z79.899 Other long term (current) drug therapy; Z79.4 Long term (current) use of insulin; Z95.0 Presence of cardiac pacemaker; Z90.49 Acquired absence of other specified parts of digestive tract; Z79.01 Long term (current) use of anticoagulants; Z60.2 Problems related to living alone
CPT/HCPCS: 0241U; 36415; 70450; 70491; 71045; 76770; 76998; 80048; 80053; 81001; 82232; 82306; 82378; 82652; 82803; 82947; 83605; 83615; 83690; 83735; 83880; 84100; 84145; 84153; 84484; 84550; 85025; 85651; 87040; 87077; 87086; 87186; 88305; 88341; 88342; 92526; 92610; 93971; 94660; 94762; 96361; 96365; 96366; 96367; 96375; 97110; 97116; 97162; 97166; 97530; 97535; 99285-25; A9270; G0378; J0360; J0456; J0696; J1815; J1940; J1956; J2060; J2405; J3010; J7030; J7040; J7050; J7512; Q9967; U0002

== ENCOUNTER 2024-01-17 04:09 | Observation (INO) | payer OTHER ==
[~2024-01-17] VITALS: Ht 175.3 cm; Wt 113.4 kg
[~2024-01-17 04:09] MED LIST changes: +ALLO100 PO; +BUSP5 PO; +HUMALOG JU100 UNIT/2; +HYDRA25 PO; +LEVO750 PO; +LEVSOD75 PO; +LORA.5 PO; +LOSA50 PO; +PRED20 PO; +Percocet 5-3251 EACH PO; +SENN187 PO; +TORSE20 PO; +VISBIOME 112.51 EACH PO
[2024-01-17] MEDS ORDERED: DiphenhydrAMINE HCl 50 MG/ML 1ML Vial IV ONE (04:20)
[2024-01-17] MEDS ORDERED: MethylPREDNISolone Sod Succ 125 MG Vial IV ONE (04:20)
[2024-01-17] MEDS ORDERED: Famotidine 10 MG/ML 2ML Vial IV ONE (04:20)
[2024-01-17 04:25] LABS: PCO2 Arterial 42.2 mmHg (35-45); PO2 Arterial 105 mmHg (80-100)
[2024-01-17] MEDS ORDERED: EPINEPHrine HCL 11.25 MG/0.5 ML VIAL INH ONE (04:35)
[2024-01-17 04:47] LABS: Hematocrit 32.9 % (37.0-53.0); Hemoglobin 10.1 g/dL (13.5-17.5); Mean Corpuscular HGB 28.8 pg (26.0-34.0); Mean Corpuscular HGB Conc 30.7 g/dL (31.5-36.5); Mean Corpuscular Volume 94 fL (80-100); Mean Platelet Volume 10.1 fL (9.1-12.4); Platelet Count 146 K/mm3 (150-400); RDW Coefficient Variation 18.1 % (11.7-14.2); RDW Standard Deviation 61.2 fL (35.1-46.3); Red Blood Cell Count 3.51 M/mm3 (4.30-5.90); White Blood Cell Count 8.64 K/mm3 (4.00-11.30)
[2024-01-17 05:00] LABS: International Normalized Ratio 1.01; Prothrombin Time Results 10.8 Sec (9.7-11.5)
[2024-01-17 05:01] LABS: Albumin, Blood 2.8 g/dL (3.4-5.0); Albumin/Globulin Ratio 0.9 (0.8-1.8); Bilirubin, Total 0.4 mg/dL (0.1-1.0); Bun/Creatinine Ratio 35.5 (12.0-20.0); Calcium, Blood 8.6 mg/dL (8.5-10.1); Creatinine, Blood 1.1 mg/dL (0.60-1.20); Globulin, Blood 3.1 g/dL (2.2-4.0); Magnesium, Blood 2.2 mg/dL (1.6-2.4); Potassium, Blood 3.7 mmol/L (3.5-5.5); Total Protein, Blood 5.9 g/dL (6.4-8.2)
[2024-01-17 05:28] LABS: Influenza A, PCR NEGATIVE (NEGATIVE); Influenza B, PCR NEGATIVE (NEGATIVE); Resp Syncytial Virus, PCR NEGATIVE (NEGATIVE); SARS-Cov-2 (COVID-19) PCR, MMC NEGATIVE (NEGATIVE)
[2024-01-17 05:40] LABS: BAND PERCENT MAN 2 % (0-8); BASOPHILS ABSOLUTE MAN 0.08 K/mm3 (0.00-0.23); BASOPHILS PERCENT MAN 1 % (0-2); EOSINOPHILS ABSOLUTE MAN 0.34 K/mm3 (0.00-0.68); EOSINOPHILS PERCENT MAN 4 % (0-6); LYMPHOCYTES ABSOLUTE MAN 0.69 K/mm3 (0.84-5.20); LYMPHOCYTES PERCENT MAN 8 % (21-46); MONOCYTES ABSOLUTE MAN 0.17 K/mm3 (0.16-1.47); MONOCYTES PERCENT MAN 2 % (4-13); NEUTROPHILS ABSOLUTE MAN 7.34 K/mm3 (1.96-9.15); SEG NEUTROPHILS PERCENT MAN 83 % (41-73); TOTAL CELLS COUNTED 100
[2024-01-17] MEDS ORDERED: Furosemide 10 MG/ML 4ML Vial IV ONE (05:40)
[2024-01-17] MEDS ORDERED: CefTRIAXone Sodium 1,000 MG in NS 100 ML IV ONE (05:45)
[2024-01-17] MEDS ORDERED: Azithromycin 500 MG in NS 250 ML IV ONE (05:45)
[2024-01-17] MEDS ORDERED: Ondansetron HCl 2 MG / ML 2ML Vial IV PRN (05:50)
[2024-01-17] MEDS ORDERED: HydrALAZINE HCl 20 MG / ML 1ML Vial IV PRN (05:55)
[2024-01-17 06:35] LABS: Source, Urine Clean Catch
[2024-01-17 06:54] LABS: Appearance, Urine Clear (Clear); Bilirubin, Urine Neg (Neg); Blood, Urine Neg (Neg); Glucose Qualitative, Urine Neg (Neg); Ketones, Urine Neg (Neg); Leukocyte Esterase, Urine Neg (Neg); Nitrite, Urine Neg (Neg); Protein, Urine Neg (Neg); Specific Gravity, Urine 1.015 (1.003-1.022); Urobilinogen, Urine NORM (Normal)
[2024-01-17 06:58] LABS: Color, Urine Pale Yellow (P-Yellow)
[2024-01-17] MEDS ORDERED: Metolazone 2.5 MG Tab PO SCH (07:00)
[2024-01-17] MEDS ORDERED: Enoxaparin 40 MG/0.4 ML SYR SC SCH (09:00)
[2024-01-17] MEDS ORDERED: Furosemide 10 MG/ML 4ML Vial IV SCH (09:00)
[2024-01-17 09:21] VITALS: BP 150/78
[2024-01-17] MEDS ORDERED: OxyCODONE 5 mg/Acetamin 325 mg TABLET PO PRN (10:10)
[2024-01-17] MEDS ORDERED: Insulin Human Lispro 100 Units/ML 3ML Syringe SC SCH ×2 (11:30→16:30)
[2024-01-17] MEDS ORDERED: LORazepam 0.5 MG Tab PO PRN (11:55)
[2024-01-17] MEDS ORDERED: Insulin Human Lispro 100 Units/ML 3ML Syringe SC ONE (12:15)
--- NOTE | 2024-01-17 17:22 | NUR ---
SHIFT SUMMARY PT AOX2, CONFUSED AT TIMES. ATTEMPTED TO GET OOB ONCE TODAY, ABLE TO REORIENT. CONDOM CATH IN PLACE AND DRAINING, PT IS GETTING LASIX. MEDICATED FOR PAIN AND ANXIETY PER THE EMAR. PT CALLS AND MAKES HIS NEEDS KNOWN. CPAP AT THE BS, PT USES IT T/O THE SHIFT. SEE ST NOTES FOR TEXTURE RESTRICTIONS. PT'S FACIAL SWELLING HAS IMPROVED. HE HAS NO COMPLAINTS AT THIS TIME. CALL LIGHT WITHIN REACH, BED LOCKED AND IN THE LOWEST POSITION. BA ON. WILL REPORT TO ONCOMING NURSE.
[2024-01-17 17:25] VITALS: BP 136/68
[2024-01-17 20:47] VITALS: BP 159/83
[2024-01-17] MEDS ORDERED: Metoprolol Tartrate 50 MG Tab PO SCH (21:00)
[2024-01-17] MEDS ORDERED: Insulin Glargine-Yfgn 100 Unit/mL 3 ML SYR SC SCH (21:00)
[2024-01-17] MEDS ORDERED: Sennosides 8.6 MG Tab PO SCH (21:00)
[2024-01-17] MEDS ORDERED: Apixaban 5 MG Tab PO SCH (21:00)
[2024-01-17] MEDS ORDERED: BusPIRone HCl 5 MG Tab PO SCH (21:00)
--- NOTE | 2024-01-18 04:29 | NUR ---
SHIFT SUMMARY PT DESATED X2 WITH THE SECOND TIME DROPPING DOWN TO 72% DT CPAP BEING WORN, BUT NOT TURNED ON CORRECTLY AFTER PT PUSHED BUTTONS. MEDICATED FOR ANXIETY X1. PT HAS BEEN PLEASANTLY CONFUSED BUT COOPERATIVE WITH CARE. WILL CONTINUE TO MONITOR.
[2024-01-18 05:40] VITALS: BP 159/95
[2024-01-18 05:40] LABS: Hematocrit 30.6 % (37.0-53.0); Hemoglobin 9.7 g/dL (13.5-17.5); Mean Corpuscular HGB Conc 31.7 g/dL (31.5-36.5); Mean Corpuscular Volume 92 fL (80-100); Mean Platelet Volume 10.9 fL (9.1-12.4); Platelet Count 156 K/mm3 (150-400); RDW Coefficient Variation 17.5 % (11.7-14.2); RDW Standard Deviation 59.2 fL (35.1-46.3); Red Blood Cell Count 3.34 M/mm3 (4.30-5.90); White Blood Cell Count 2.93 K/mm3 (4.00-11.30)
[2024-01-18] MEDS ORDERED: Levothyroxine Sodium 0.075 MG Tab PO SCH (06:00)
[2024-01-18] MEDS ORDERED: Azithromycin 500 MG in NS 250 ML IV SCH (06:00)
[2024-01-18] MEDS ORDERED: CefTRIAXone Sodium 1,000 MG in NS 100 ML IV SCH (06:00)
[2024-01-18 06:16] LABS: Albumin, Blood 2.9 g/dL (3.4-5.0); Bilirubin, Total 0.5 mg/dL (0.1-1.0); Bun/Creatinine Ratio 38.3 (12.0-20.0); Calcium, Blood 8.7 mg/dL (8.5-10.1); Creatinine, Blood 1.15 mg/dL (0.60-1.20); Potassium, Blood 3.6 mmol/L (3.5-5.5); Total Protein, Blood 5.9 g/dL (6.4-8.2)
[2024-01-18 06:28] LABS: BAND PERCENT MAN 2 % (0-8); BASOPHILS ABSOLUTE MAN 0.05 K/mm3 (0.00-0.23); BASOPHILS PERCENT MAN 2 % (0-2); EOSINOPHILS ABSOLUTE MAN 0.02 K/mm3 (0.00-0.68); EOSINOPHILS PERCENT MAN 1 % (0-6); LYMPHOCYTES ABSOLUTE MAN 0.26 K/mm3 (0.84-5.20); LYMPHOCYTES PERCENT MAN 9 % (21-46); MONOCYTES ABSOLUTE MAN 0.17 K/mm3 (0.16-1.47); MONOCYTES PERCENT MAN 6 % (4-13); SEG NEUTROPHILS PERCENT MAN 80 % (41-73); TOTAL CELLS COUNTED 100
[2024-01-18] MEDS ORDERED: NS 250 ML IV PRN (06:40)
[2024-01-18 07:23] VITALS: BP 147/72
[2024-01-18] MEDS ORDERED: Cholecalciferol 1000 Unit Tablet (=25MCG) PO SCH (09:00)
[2024-01-18] MEDS ORDERED: Polyethylene Glycol 3350 17 gm PO SCH (09:00)
[2024-01-18] MEDS ORDERED: Atorvastatin 10 MG Tab PO SCH (09:00)
[2024-01-18] MEDS ORDERED: Sertraline HCl 100 MG Tab PO SCH (09:00)
[2024-01-18] MEDS ORDERED: Potassium Chloride 10 Meq Tablet SA PO SCH (09:00)
[2024-01-18] MEDS ORDERED: Allopurinol 100 MG Tab PO SCH (09:00)
[2024-01-18] MEDS ORDERED: Fluticasone 0.05% Nasal Spray SCH (09:00)
[2024-01-18] MEDS ORDERED: Losartan Potassium 50 MG Tab PO SCH (09:00)
[2024-01-18] MEDS ORDERED: Insulin Human Lispro 100 Units/ML 3ML Syringe SC SCH (11:30)
[2024-01-18] MEDS ORDERED: MIRALAX1714 PO (15:04)
[2024-01-18] MEDS ORDERED: VISBIOME 112.51 EACH PO (15:05)
[2024-01-18] MEDS ORDERED: AZIT500 PO (15:06)
[2024-01-18] MEDS ORDERED: CEFU500T30 PO (15:07)
[2024-01-18 15:28] LABS: Influenza A, PCR NEGATIVE (NEGATIVE); Influenza B, PCR NEGATIVE (NEGATIVE); Resp Syncytial Virus, PCR NEGATIVE (NEGATIVE); SARS-Cov-2 (COVID-19) PCR, MMC NEGATIVE (NEGATIVE)
--- NOTE | 2024-01-18 17:34 | NUR ---
DC-1530 PT LEFT VIA TRANSPORT TO [facility]. PT LEFT WITH ALL BELONGINGS IN STABLE CONDITION. HARD SCRIPTS SENT WITH PT AND COPIES MADE AND PLACED IN CHART.
== END 2024-01-18 15:40 ==
LOC: ER 04:09 → MEDS 04:10 → ENPENDDIS 01-18 13:50 → MEDS 01-18 15:40
PROVIDERS: Emergency Medicine; Internal Medicine; ADMIT Internal Medicine
DX: R22.0 Localized swelling, mass and lump, head (principal); I13.0 Hypertensive heart and chronic kidney disease with heart failure and stage 1 through stage 4 chronic kidney disease, or unspecified chronic kidney disease; I50.23 Acute on chronic systolic (congestive) heart failure; E11.22 Type 2 diabetes mellitus with diabetic chronic kidney disease; N18.30 Chronic kidney disease, stage 3 unspecified; I48.20 Chronic atrial fibrillation, unspecified; G47.33 Obstructive sleep apnea (adult) (pediatric); E78.5 Hyperlipidemia, unspecified; E03.9 Hypothyroidism, unspecified; C83.30 Diffuse large B-cell lymphoma, unspecified site; F41.8 Other specified anxiety disorders; Z66 Do not resuscitate; Z79.01 Long term (current) use of anticoagulants; Z79.899 Other long term (current) drug therapy; Z79.890 Hormone replacement therapy; Z88.7 Allergy status to serum and vaccine; Z88.8 Allergy status to other drugs, medicaments and biological substances; Z87.891 Personal history of nicotine dependence; Z85.46 Personal history of malignant neoplasm of prostate
CPT/HCPCS: 0241U; 36415; 36600; 71045; 80053; 81003; 82803; 82947; 83605; 83690; 83735; 83880; 84145; 84439; 84443; 84484; 85025; 85610; 92526; 92610; 93005; 93010; 94640; 94664; 94762; 96365; 96366; 96367; 96372; 96375; 96376; 97110; 97162; 97530; 99285-25; A9270; G0378; J0456; J0696; J1650; J1815; J1940; J7050